=== PATIENT | male | born 2000 | race Caucasian/White ===

== ENCOUNTER 2019-04-13 09:26 | Day surgery (SDC) | payer OTHER ==
[2019-04-13] VITALS (13 sets, daily range): BP systolic 110–143; BP diastolic 71–87; PULSE 58–70; RESP 14–18; Ht 175.3 cm; Wt 77.9 kg
[~2019-04-13] VITALS: Ht 175.3 cm; Wt 77.9 kg
--- NOTE | 2019-04-13 09:16 | SIPON ---
Date/Time of Note Date/Time of Note DATE: 04/13/19 TIME: 09:16 Operative Report Preoperative Diagnosis dns Postoperative Diagnosis same Operation/Procedure Performed stm Surgeon see signature line observation assistant na Anesthesia: general Estimated blood loss: 10 - 50 ml's Transfusion Required none Specimen septal bone Grafts/Implants none Complications none LIANG MERRITT MD April 13, 2019 09:16
[~2019-04-13 09:26] MED LIST: ASMACORT; MONT5TAB13; RTPRO5
[2019-04-13] MEDS ORDERED: CHOL500010 PO (10:04)
[2019-04-13] MEDS ORDERED: SEVOFLURANE 15 MIN ONE (12:00)
--- NOTE | 2019-04-13 12:05 | HPN ---
Date/Time of Note Date/Time of Note DATE: 04/13/19 TIME: 12:05 Interval H&P Admission Note Pt. seen H&P reviewed: No system changes LIANG MERRITT MD April 13, 2019 12:05
[2019-04-13] MEDS ORDERED: LIDOCAINE 1%/EPI (1:100,000) (MDV) 20 ML ONE (12:07)
[2019-04-13] MEDS ORDERED: OXYMETAZOLINE 0.05% 15 ML NAS SPRAY NASAL ONE (12:08)
--- NOTE | 2019-04-13 12:11 | PREAC ---
Date/Time of Note Date/Time of Note DATE: 04/13/19 TIME: 12:10 Anesthesia Eval and Record Evaluation Time Pre-Procedure Interview DATE: 04/13/19 TIME: 12:10 Age 19 Sex male NPO: 8 hrs Preoperative diagnosis Deviated nasal septum, bilateral nasal turbinate hypertrophy Planned procedure Septoplasty, bilateral turbinate modification Past Medical History Past Medical History: Includes Pulm: Asthma Surgery & Anesthesia Issues No known issue Meds Anticoagulation: No Beta Sabrina within 24 hr: No Reason Beta Sabrina not given: Pt. not on B-Sabrina Reported Medications Cholecalciferol (Vitamin D3) 5,000 Unit Tablet, 5000 UNIT PO DAILY, TAB 04/13/19 Discontinued Reported Medications Montelukast Sodium* (Singulair*) 5 Mg Tab.chew 01/01/11 [Asmacort] No Conflict Check 01/01/11 Albuterol Sulfate* (Proventil* Neb) 0.5 Ml Nebu 01/01/11 Meds reviewed: Yes Allergies Coded Allergies: No Known Drug Allergy (Verified Allergy, Mild, 04/13/19) Allergies Reviewed: Yes Labs/Studies Labs Reviewed: Reviewed by anesthesiologist test: N/A Pre-procedure Exam Last vitals Vital Signs Date Temp Pulse Resp B/P (MAP) Pulse Ox O2 O2 Flow FiO2 Time Delivery Rate 04/13/19 98.0 65 16 110/71 99 10:00 (84) Airway: Adequate mouth opening Mallampati: Mallampati I Teeth: Normal Lung: Normal Heart: Normal ASA Physical Status ASA physical status: 1 Emergency: None Planned Anesthetic General/MAC: ETT Planned Pain Management Parenteral pain med Pre-operative Attestations Prior to commencing anesthesia and surgery, the patient was re-evaluated, there was verification of: *The patient's identity *The results of appropriate recent lab work and preoperative vital signs *The above evaluation not changing prior to induction *Anesthetic plan, risk benefits, alternative and complications discussed with patient/family; questions answered; patient/family understands, accepts and wishes to proceed. IVY COLLAZO MD April 13, 2019 12:11
[2019-04-13] MEDS ORDERED: GLYCOPYRROLATE 0.4 MG INJ ONE ×2 (12:25→13:04)
[2019-04-13] MEDS ORDERED: LIDOCAINE 2% (SDV) 5 ML INJ ONE (12:25)
[2019-04-13] MEDS ORDERED: NEOSTIGMINE 3 MG/3 ML SYRINGE ONE ×2 (12:25→13:04)
[2019-04-13] MEDS ORDERED: SUCCINYLCHOLINE CHLORIDE 100 MG/5 ML SYG IV ONE (12:25)
[2019-04-13] MEDS ORDERED: MEPERIDINE 100 MG INJ ONE (12:25)
[2019-04-13] MEDS ORDERED: ROCURONIUM 50 MG INJ ONE (12:25)
[2019-04-13] MEDS ORDERED: PROPOFOL 20 ML ONE (12:25)
[2019-04-13] MEDS ORDERED: ONDANSETRON 4 MG INJ ONE (13:06)
[2019-04-13] MEDS ORDERED: MIDAZOLAM 1 MG/ML 2 ML INJ IV PRN (13:30)
[2019-04-13] MEDS ORDERED: FENTAnyl 50 MCG/ML VIAL IV PRN ×3 (13:30)
[2019-04-13] MEDS ORDERED: ONDANSETRON 4 MG INJ IV PRN (13:30)
[2019-04-13] MEDS ORDERED: HYDROmorphONE 1 MG/5 ML IV SYRINGE IV PRN ×3 (13:30)
[2019-04-13] MEDS ORDERED: OXYCODONE/ACETAMINOPHEN (5/325) TAB PO PRN ×2 (13:30)
[2019-04-13] MEDS ORDERED: MEPERIDINE 25 MG INJ IV PRN (13:30)
[2019-04-13] MEDS ORDERED: DIPHENHYDRAMINE 50 MG INJ IV PRN (13:30)
[2019-04-13] MEDS ORDERED: METOCLOPRAMIDE 10 MG INJ IV PRN (13:30)
--- NOTE | 2019-04-13 14:46 | PAC ---
Date/Time of Note Date/Time of Note DATE: 04/13/19 TIME: 14:40 Post-Anesthesia Notes Post-Anesthesia Note Last documented vital signs Vital Signs Date Temp Pulse Resp B/P (MAP) Pulse Ox O2 O2 Flow FiO2 Time Delivery Rate 04/13/19 98.0 14:17 04/13/19 65 16 110/71 99 10:00 (84) Activity: WNL Respiratory function: WNL Cardiovascular function: WNL Mental status: Baseline Pain reasonably controlled: Yes Hydration appropriate: Yes Nausea/Vomiting absent: Yes Comments BT: 98.3, BP: 121/78, HR: 67, RR: 16, Pulse Ox: 99 IVY COLLAZO MD April 13, 2019 14:46
--- NOTE | 2019-04-13 20:44 | OPR ---
DATE OF OPERATION: PREOPERATIVE DIAGNOSES: 1. Deviated septum. 2. Turbinate hypertrophy. POSTOPERATIVE DIAGNOSES: 1. Deviated septum. 2. Turbinate hypertrophy. PROCEDURES: Septoplasty, bilateral inferior turbinate modifications. SURGEON: Yahir Guerrero MD ANESTHESIA: General anesthesia. COMPLICATIONS: None. ESTIMATED BLOOD LOSS: Minimal. DESCRIPTION OF PROCEDURE: After informed consent was obtained, the patient was brought to the operat ing room, placed in the supine position. General anesthesia was then induced. The nose was injected with 1% lidocaine with 1:100,000 epinephrine and packed with Afrin soaked nasal gauze. After suffic ient period of time had elapsed, he was prepped and draped in sterile fashion. Left-sided hemitransf ixion incision was made. Bilateral mucoperichondrial flaps were elevated. Osteocartilaginous juncti on was disarticulated. High cuts were made in the perpendicular plane of the ethmoid. Posterior bon y defects were removed using a Miquel. The cartilage was disarticulated from the maxillary crest and the crest deviation removed using an osteotome. The septum swung back into the midline and fixat ed to the spine using a [id number] Vicryl suture. At this point, any cartilage was removed, was morselized and replaced posteriorly. The hemitransfixion incision was then closed using multiple ch romic sutures. Whipstitch composed of plain gut was used to oppose septal flaps. The inferior turbi nates were submucosally reduced, infractured and outfractured using a Allen. At this point, the ai rway was excellent. The nose was packed with Telfa. Patient then awakened and transferred to [facility] room in stable condition. Dictated By: YAHIR AHN/KAREN Conf#: [id number] DID#: [id number]
== END 2019-04-13 15:10 | disposition home or self-care (01) ==
LOC: SDS 09:26
PROVIDERS: ATTEND Otolaryngology
DX: J34.2 Deviated nasal septum (principal); J34.3 Hypertrophy of nasal turbinates
CPT/HCPCS: 30140; 30520; 88300; J2175; J2405; J2710; Z7512; Z7610